=== PATIENT | female | born 1960 | race Two or more races ===

== ENCOUNTER 2016-12-14 03:06 | Emergency (ER) | payer BC, OTHER ==
--- NOTE | ~2016-12-14 | CT2 ---
[facility] A Service of [facility] & [facility] RADIOLOGY TEXT RESULTS PATIENT: VLADISLAV VILLAGOMEZ LOCATION: [facility] : 64 UNIT #: [id number] AGE: [address]: Simon Arechiga MD SEX: F ORDER DR: [id number] [facility] [address] [place], [place] [address] [id number] E MR#: [id number] #: [id number] NAME: VLADISLAV VILLAGOMEZ : 1960 SEX: F STUDY DATE/TIME: 12/14/2016 09:08 UNIT: [facility] ROOM: STUDY DESCRIPTION: CT Abd and Pelv W Cont Attending Physician: Simon Arechiga M.D. Ordering Physician: Simon Arechiga M.D. Primary Care Physician: Primary Care Physician No MEDICAL IMAGING REPORT This report is preliminary unless electronic signature is present EXAM CT abdomen and pelvis with contrast, 12/14/2016 09:08 hours HISTORY 56-year-old woman with left lower quadrant abdominal pain with nausea, diarrhea since 12/13/2016. COMPARISON None TECHNIQUE Dynamic helical CT images were obtained from the lung bases through the pubic symphysis with oral and intravenous contrast. Sagittal and coronal reconstructions were performed. Contrast was Isovue-370 100 mL IV. Total exam DLP 847 mGy-cm. This CT exam was performed with one or more of the following radiation dose reduction techniques: automatic exposure control, adjustment of mA and/or kV according to patient size, and iterative reconstruction. FINDINGS Images through the lung bases demonstrate mild dependent ground-glass change at both bases, likely atelectasis. There is no nodule, infiltrate or effusion. Images through the abdomen demonstrate a normal appearance to the liver, spleen, pancreas. The gallbladder is very contracted. No stones or wall thickening is seen. There is no dilatation of the bile duct. The adrenal glands are normal. The kidneys enhance normally. There is no mass, stone or obstruction. No ureterectasis or ureteral calculus is seen. The bladder is normal. The stomach is poorly opacified and poorly distended but does appear [facility] A Service of [facility] & [facility] RADIOLOGY TEXT RESULTS PATIENT: VLADISLAV VILLAGOMEZ HLEIH LOCATION: [facility] #: [id number] : 64 UNIT #: [id number] AGE: [address]: Simon Arechiga MD SEX: F ORDER DR: alejandra. There is no small bowel distension or small bowel wall thickening. There is increased fluid in nondilated small bowel distally. The terminal ileum and cecum are normal. It is difficult to clearly delineate the appendix but there is no evidence of appendicitis. There is no colonic wall thickening or distension. Specifically, the splenic flexure of the colon and descending colon are normal. CT pelvis demonstrates a normal appearing anteverted uterus. There is no adnexal mass or free fluid. There is increased fluid and stool in the rectum but no wall thickening. IMPRESSION 1. Essentially negative CT of the abdomen and pelvis. There is no bowel distension or bowel wall thickening. There is generally a slightly increased amount of fluid in both the small bowel and colon which can be seen in a viral illness. There is no adenopathy or free air. 2. Very contracted gallbladder without stones or wall thickening. 3. No renal or ureteral calculi. 4. There is no adenopathy or ascites. Dictated by... Dolores Ramires M.D. THIS IS AN ELECTRONICALLY VERIFIED REPORT Dolores Ramires M.D. at 12/14/2016 2:21 PM Anne Marie TD: 12/14/2016 12:39 JOB #: [id number] MEDICAL IMAGING REPORT Page 1 of 1 COPY
[2016-12-14] MEDS ORDERED: ISENTRESS400 MG PO (03:27)
[2016-12-14] MEDS ORDERED: NEURONTIN300 MG PO (03:27)
[2016-12-14] MEDS ORDERED: TRUVADA 200 MG1 EACH PO (03:27)
[2016-12-14 05:27] LABS: URINE SOURCE CLEAN CATCH
[2016-12-14 05:52] LABS: URINE APPEARANCE SL CLOUDY; URINE BLOOD NEG (NEG); URINE COLOR YELLOW; URINE GLUCOSE 1000 MG/DL (NORM); URINE KETONE NEG (NEG); URINE LEUKOCYTE ESTERASE NEG (NEG); URINE NITRATE NEG (NEG); URINE PROTEIN 1+ (NEG); URINE SPECIFIC GRAVITY 1.025 (1.003-1.035); URINE UROBILINOGEN NORM (NORM)
[2016-12-14 05:55] LABS: URINE BACTERIA AUWI NEG (NEGATIVE); URINE SQUAMOUS EPITHELIAL CELL FEW /[HPF]
[2016-12-14 05:59] LABS: URINE BILIRUBIN NEG (NEG)
[2016-12-14 06:05] LABS: CULTURE INDICATED? NO; U HYALINE CASTS AUWI 0-2 /[LPF]; URINE CRYSTALS URIC ACID /[HPF]
[2016-12-14 06:06] LABS: URBCS1 AUWI 0-2 /[HPF] (0-2)
[2016-12-14 06:51] LABS: BASOPHIL# 0.1 X10e3 (0-0.3); BASOPHIL% 0.3 % (0-2.5); DIFF IND YES; EOSINOPHIL# 0.1 X10e3 (0-0.7); EOSINOPHIL% 0.5 % (0.0-7.0); HEMOGLOBIN 15.2 gm/dL (12.0-16.0); LYMPHOCYTE# 3.1 X10e3 (1.0-3.5); MEAN CELL VOLUME 94.3 FL (83-96); MEAN CORPUSCULAR HEMOGLOBIN 31.1 PG (28-34); MONOCYTE% 6.5 % (3.0-12.0); NEUTROPHIL# 11.2 X10e3 (1.5-7.1); NEUTROPHIL% 72.7 % (40-75); PLATELET COUNT 300 X10e3 (140-420); RED BLOOD COUNT 4.88 X10e (3.90-5.30); RED CELL DISTRIBUTION WIDTH 12.5 % (11.0-15.5); WHITE BLOOD COUNT 15.4 X10e3 (4.0-10.5)
[2016-12-14 07:17] LABS: PLATELET ESTIMATE NORMAL (NORMAL)
[2016-12-14 07:22] LABS: ALBUMIN SERUM 3.6 g/dL (3.5-5.0); BILIRUBIN, DIRECT 0.1 mg/dL (0.0-0.2); BILIRUBIN,INDIRECT 0.6 mg/dL (0.0-0.9); BILIRUBIN,TOTAL 0.7 mg/dL (0.2-2.0); BUN/CREATININE RATIO 23.75; CALCIUM SERUM 9.4 mg/dL (8.4-10.2); CREATININE SERUM 0.8 mg/dL (0.6-1.4); GLOM FILT RATE Estimated 83.7 mL/min (>60); POTASSIUM 3.4 mmol/L (3.5-5.1); PROTEIN TOTAL SERUM 8.6 g/dL (6.0-8.3)
== END 2016-12-14 11:02 | disposition home or self-care (01) ==
LOC: CED 03:06
DX: R10.84 Generalized abdominal pain (principal); R19.7 Diarrhea, unspecified; Z98.890 Other specified postprocedural states; Z79.899 Other long term (current) drug therapy
CPT/HCPCS: 36415; 74177; 80048; 80076; 81003; 83690; 85025; 96361; 96374; 99284; J2405; Q9967